=== PATIENT | female | born 1985 | race Caucasian/White ===

== ENCOUNTER 2017-07-29 05:24 | Inpatient (IN) | payer OTHER ==
[2017-07-29] VITALS (36 sets, daily range): BP systolic 98–137; BP diastolic 53–88; PULSE 51–103; TEMP 97.8–98.8
[~2017-07-29] VITALS: Ht 162.6 cm; Wt 76.8 kg
[2017-07-29] MEDS ORDERED: PROBIOTIC FORMU1 CAP PO (05:54)
[2017-07-29] MEDS ORDERED: PRENATAL PO (05:54)
[2017-07-29 06:47] LABS: BASO # 0.1 (0.0-0.2); BASO % 0.4 % (0.0-2.0); EOS # 0.1 (0.0-0.7); EOS % 0.4 % (0-4.0); GRAN # 10.6 (1.4-6.5); GRAN % 76.6 % (42.2-75.2); HEMATOCRIT 38.6 % (37.0-47.0); HEMOGLOBIN 13.2 g/dl (12.5-16.0); LYMPH # 2.1 (1.2-3.4); LYMPH % 15.5 % (20.0-51.0); MEAN CELL VOLUME 92 fl (80.0-100.0); MEAN CORPUSCULAR HEMOGLOBIN 31 pg (27.0-31.0); MEAN CORPUSCULAR HGB CONC 34 g/dl (33.0-37.0); MEAN PLATELET VOLUME 9.2 fl (7.4-10.4); MONO # 0.9 (0.1-0.6); MONO % 6.4 % (1.7-9.3); PLATELET COUNT 228 K/mm3 (130-400); WHITE BLOOD COUNT 13.8 K/mm3 (4.8-10.8)
[2017-07-30 03:43] VITALS: BP 116/64; PULSE 83; TEMP 98.5
[2017-07-30 07:24] LABS: HEMATOCRIT 37.4 % (37.0-47.0); HEMOGLOBIN 12.8 g/dl (12.5-16.0)
[2017-07-30 09:00] VITALS: BP 115/64; PULSE 81; TEMP 98.7
[2017-07-30] MEDS ORDERED: MOTRIN 600600 MG/TAB PO (10:26)
[2017-07-30] MEDS ORDERED: PERCOCET 325 MG1 TA2 PO (10:26)
== END 2017-07-30 13:05 | disposition home or self-care (01) | DRG 775 ==
LOC: LDRO 05:24 → LDR 05:30 → OB 12:45 → LDRO 08-07 09:12
PROVIDERS: Obstetrics & Gynecology
PROC: 10E0XZZ Delivery of Products of Conception, External Approach (ICD-10-PCS; principal; 2017-07-29)
PROC: 0UQMXZZ Repair Vulva, External Approach (ICD-10-PCS; 2017-07-29)
DX: O42.02 Full-term premature rupture of membranes, onset of labor within 24 hours of rupture (principal); O70.0 First degree perineal laceration during delivery; Z3A.38 38 weeks gestation of pregnancy; Z37.0 Single live birth
CPT/HCPCS: J2590; J7120